=== PATIENT | female | born 1995 | race Caucasian/White ===

== ENCOUNTER → 2021-02-21 12:29 | Outpatient (CLI) | payer OTHER, SELFPAY ==
--- NOTE | ~2021-02-21 | XR_ITS ---
XR forearm RT 2V, XR wrist RT min 3V 02/21/2021 12:41 (accession [id number]), 02/21/2021 12:40 (accession [id number]) INDICATION: Right arm pain PROCEDURE: 2 views right forearm and 4 views right wrist COMPARISON: No prior studies for comparison. FINDINGS: Fracture, dislocation or subluxation is not identified. The soft tissues appear within norm al limits. No foreign bodies are identified. IMPRESSION: 1: NO ACUTE BONE OR JOINT ABNORMALITY IDENTIFIED. Reviewed, dictated and finalized at location B. IMPRESSION: 1: NO ACUTE BONE OR JOINT ABNORMALITY IDENTIFIED.
== END ==
PROVIDERS: PCP Family Medicine; Visit Provider Physician Assistant
DX: M79.603 Pain in arm, unspecified (principal)
CPT/HCPCS: 73090; 73110